=== PATIENT | female | born 1995 | race Caucasian/White ===

== ENCOUNTER → 2017-06-30 | Outpatient (CLI) | payer OTHER ==
[~2017-06-30] MED LIST: ALPR.5 PO; CYCL10 PO; Jolessa1 EACH PO; MEDR150I IM; MOOD STABILIZER PO; OMEPRAZOLE MAGN20 MG; PENVK500 PO; PROC5 PO; PROG100 PO; TIZA4 PO
== END | disposition home or self-care (01) ==
LOC: LAB 15:38
DX: N76.0 Acute vaginitis (principal)
CPT/HCPCS: 87070; 87205

== ENCOUNTER 2018-08-10 10:40 | Emergency (ER) | payer OTHER ==
[~2018-08-10] VITALS: Ht 154.9 cm; Wt 54.9 kg
[2018-08-10 11:48] LABS: BASOPHILS ABSOLUTE AUTO 0.04 K/mm3 (0.00-0.23); BASOPHILS PERCENT AUTO 0 % (0-2); EOSINOPHILS ABSOLUTE AUTO 0.11 K/mm3 (0.00-0.68); EOSINOPHILS PERCENT AUTO 1 % (0-6); Hematocrit 36.2 % (33.0-51.0); Hemoglobin 11.8 g/dL (11.5-16.0); IMMATURE GRAN ABSOLUTE AUTO 0.07 K/mm3 (0.00-0.10); IMMATURE GRAN PERCENT AUTO 1 % (0-1); LYMPHOCYTES ABSOLUTE AUTO 1.52 K/mm3 (0.84-5.20); LYMPHOCYTES PERCENT AUTO 13 % (21-46); MONOCYTES ABSOLUTE AUTO 0.57 K/mm3 (0.16-1.47); MONOCYTES PERCENT AUTO 5 % (4-13); Mean Corpuscular HGB 27.6 pg (26.0-34.0); Mean Corpuscular HGB Conc 32.6 g/dL (31.5-36.5); Mean Corpuscular Volume 85 fL (80-100); NEUTROPHILS ABSOLUTE AUTO 9.65 K/mm3 (1.96-9.15); NEUTROPHILS PERCENT AUTO 81 % (41-73); Platelet Count 278 K/mm3 (150-400); RDW Coefficient Variation 13.9 % (11.7-14.2); RDW Standard Deviation 43.1 fL (35.1-46.3); Red Blood Cell Count 4.27 M/mm3 (3.80-5.20); White Blood Cell Count 11.96 K/mm3 (4.00-11.30)
[2018-08-10 12:14] LABS: Alanine Aminotransfer (ALT/SGP 27 U/L (12-78); Albumin, Blood 3.2 g/dL (3.4-5.0); Albumin/Globulin Ratio 0.8 (0.8-1.8); Alk Phos 72 U/L (50-136); Anion Gap 8 mmol/L (6-16); Aspartate Aminotrans (AST/SGOT 23 U/L (12-37); Bilirubin, Total 0.2 mg/dL (0.1-1.0); Blood Urea Nitrogen 8 mg/dL (8-24); Bun/Creatinine Ratio 24.6 (12.0-20.0); CO2, Blood 24 mmol/L (21-32); Calcium, Blood 8.8 mg/dL (8.5-10.1); Chloride, Blood 104 mmol/L (98-108); Creatinine, Blood 0.33 mg/dL (0.40-1.00); Globulin, Blood 4.1 g/dL (2.2-4.0); Glomerular Filtration Rate >60 (60-); Glucose, Blood 81 mg/dL (70-99); Potassium, Blood 3.9 mmol/L (3.5-5.5); Sodium, Blood 136 mmol/L (136-145); Total Protein, Blood 7.3 g/dL (6.4-8.2)
== END 2018-08-10 18:33 | disposition home or self-care (01) ==
LOC: ER 10:40
PROVIDERS: Physician Assistant
DX: O99.89 Other specified diseases and conditions complicating pregnancy, childbirth and the puerperium (principal); R06.00 Dyspnea, unspecified; R00.2 Palpitations; Z87.891 Personal history of nicotine dependence; Z3A.21 21 weeks gestation of pregnancy
CPT/HCPCS: 36415; 71260; 80053; 83880; 84484; 85025; 85379; 93005; 93010; 93970; 99284-25; Q9967

== ENCOUNTER 2018-12-10 04:11 | Inpatient (IN) | payer OTHER ==
[~2018-12-10] VITALS: Ht 154.9 cm; Wt 67.3 kg
[2018-12-10] MEDS ORDERED: Prenatal Vitam1 EAC2 PO (04:48)
[2018-12-10 04:52] LABS: BASOPHILS ABSOLUTE AUTO 0.01 K/mm3 (0.00-0.23); BASOPHILS PERCENT AUTO 0 % (0-2); EOSINOPHILS ABSOLUTE AUTO 0.09 K/mm3 (0.00-0.68); EOSINOPHILS PERCENT AUTO 1 % (0-6); Hematocrit 38.4 % (33.0-51.0); Hemoglobin 12.9 g/dL (11.5-16.0); IMMATURE GRAN ABSOLUTE AUTO 0.03 K/mm3 (0.00-0.10); IMMATURE GRAN PERCENT AUTO 0 % (0-1); LYMPHOCYTES ABSOLUTE AUTO 2.32 K/mm3 (0.84-5.20); LYMPHOCYTES PERCENT AUTO 27 % (21-46); MONOCYTES ABSOLUTE AUTO 0.73 K/mm3 (0.16-1.47); MONOCYTES PERCENT AUTO 8 % (4-13); Mean Corpuscular HGB 28.2 pg (26.0-34.0); Mean Corpuscular HGB Conc 33.6 g/dL (31.5-36.5); Mean Corpuscular Volume 84 fL (80-100); Mean Platelet Volume 11.3 fL (9.1-12.4); NEUTROPHILS ABSOLUTE AUTO 5.57 K/mm3 (1.96-9.15); NEUTROPHILS PERCENT AUTO 64 % (41-73); Platelet Count 171 K/mm3 (150-400); RDW Coefficient Variation 13.2 % (11.7-14.2); Red Blood Cell Count 4.57 M/mm3 (3.80-5.20); White Blood Cell Count 8.75 K/mm3 (4.00-11.30)
--- NOTE | 2018-12-10 18:55 | NUR ---
NO COMPLAINTS. LOCHIA SCANT. LABIA REMAINS EDEMATOUS- NEW ICE PACK GIVEN. VOIDING AND AMBULATING WITHOUT DIFFICULTY.
[2018-12-11 05:30] LABS: BASOPHILS ABSOLUTE AUTO 0.03 K/mm3 (0.00-0.23); BASOPHILS PERCENT AUTO 0 % (0-2); EOSINOPHILS ABSOLUTE AUTO 0.11 K/mm3 (0.00-0.68); EOSINOPHILS PERCENT AUTO 1 % (0-6); Hematocrit 35.9 % (33.0-51.0); Hemoglobin 11.8 g/dL (11.5-16.0); IMMATURE GRAN ABSOLUTE AUTO 0.05 K/mm3 (0.00-0.10); IMMATURE GRAN PERCENT AUTO 0 % (0-1); LYMPHOCYTES PERCENT AUTO 19 % (21-46); MONOCYTES ABSOLUTE AUTO 0.68 K/mm3 (0.16-1.47); MONOCYTES PERCENT AUTO 5 % (4-13); Mean Corpuscular HGB 27.8 pg (26.0-34.0); Mean Corpuscular HGB Conc 32.9 g/dL (31.5-36.5); Mean Corpuscular Volume 85 fL (80-100); Mean Platelet Volume 10.4 fL (9.1-12.4); NEUTROPHILS PERCENT AUTO 74 % (41-73); Platelet Count 157 K/mm3 (150-400); RDW Coefficient Variation 13.5 % (11.7-14.2); RDW Standard Deviation 41.2 fL (35.1-46.3); Red Blood Cell Count 4.24 M/mm3 (3.80-5.20); White Blood Cell Count 13.47 K/mm3 (4.00-11.30)
[2018-12-11] MEDS ORDERED: IBUP800 PO (18:36)
== END 2018-12-11 19:00 | disposition home or self-care (01) | DRG 807 ==
LOC: BC 04:11
PROVIDERS: ADMIT Nurse Practitioner Obstetrics & Gynecology
PROC: 10E0XZZ Delivery of Products of Conception, External Approach (ICD-10-PCS; principal; 2018-12-10)
PROC: 3E0R3BZ Introduction of Anesthetic Agent into Spinal Canal, Percutaneous Approach (ICD-10-PCS; 2018-12-10)
DX: O24.420 Gestational diabetes mellitus in childbirth, diet controlled (principal); Z37.0 Single live birth; O13.4 Gestational [pregnancy-induced] hypertension without significant proteinuria, complicating childbirth; Z3A.38 38 weeks gestation of pregnancy; O75.89 Other specified complications of labor and delivery; M32.9 Systemic lupus erythematosus, unspecified; O99.824 Streptococcus B carrier state complicating childbirth
CPT/HCPCS: 36415; 51702; 82947; 85025; 86900; 86901; J0290; J1885; J2405; J2590; J3010; J7060; J7120

== ENCOUNTER → 2019-06-30 | Outpatient (CLI) | payer OTHER ==
[~2019-06-30] MED LIST changes: +IBUP800 PO; +Prenatal Vitam1 EAC2 PO
[2019-06-30 16:25] LABS: BASOPHILS ABSOLUTE AUTO 0.03 K/mm3 (0.00-0.23); BASOPHILS PERCENT AUTO 0 % (0-2); EOSINOPHILS ABSOLUTE AUTO 0.02 K/mm3 (0.00-0.68); EOSINOPHILS PERCENT AUTO 0 % (0-6); Hemoglobin 13.1 g/dL (11.5-16.0); IMMATURE GRAN ABSOLUTE AUTO 0.02 K/mm3 (0.00-0.10); IMMATURE GRAN PERCENT AUTO 0 % (0-1); LYMPHOCYTES ABSOLUTE AUTO 1.11 K/mm3 (0.84-5.20); LYMPHOCYTES PERCENT AUTO 13 % (21-46); MONOCYTES ABSOLUTE AUTO 0.57 K/mm3 (0.16-1.47); MONOCYTES PERCENT AUTO 7 % (4-13); Mean Corpuscular HGB 26.6 pg (26.0-34.0); Mean Corpuscular HGB Conc 32.8 g/dL (31.5-36.5); Mean Corpuscular Volume 81 fL (80-100); Mean Platelet Volume 9.3 fL (9.1-12.4); NEUTROPHILS ABSOLUTE AUTO 6.61 K/mm3 (1.96-9.15); NEUTROPHILS PERCENT AUTO 79 % (41-73); Platelet Count 255 K/mm3 (150-400); RDW Standard Deviation 37.9 fL (35.1-46.3); Red Blood Cell Count 4.93 M/mm3 (3.80-5.20); White Blood Cell Count 8.36 K/mm3 (4.00-11.30)
[2019-06-30 16:34] LABS: Alanine Aminotransfer (ALT/SGP 21 U/L (12-78); Albumin, Blood 3.8 g/dL (3.4-5.0); Alk Phos 121 U/L (40-126); Anion Gap 8 mmol/L (6-16); Aspartate Aminotrans (AST/SGOT 19 U/L (12-37); Bilirubin, Total 0.5 mg/dL (0.1-1.0); Blood Urea Nitrogen 13 mg/dL (8-24); CO2, Blood 26 mmol/L (21-32); Chloride, Blood 104 mmol/L (98-108); Creatinine, Blood 0.65 mg/dL (0.40-1.00); Globulin, Blood 3.9 g/dL (2.2-4.0); Glomerular Filtration Rate >60 (60-); Glucose, Blood 98 mg/dL (70-99); Potassium, Blood 3.6 mmol/L (3.5-5.5); Sodium, Blood 138 mmol/L (136-145); Total Protein, Blood 7.7 g/dL (6.4-8.2)
== END | disposition home or self-care (01) ==
LOC: LAB SHORT 16:20 → LAB EV 16:20
PROVIDERS: Physician Assistant
DX: R73.9 Hyperglycemia, unspecified (principal)
CPT/HCPCS: 80053; 83036; 85025

== ENCOUNTER → 2021-02-21 | Outpatient (CLI) | payer OTHER | END | disposition home or self-care (01) | LOC: LAB SHORT 10:00 | DX: Z09 Encounter for follow-up examination after completed treatment for conditions other than malignant neoplasm (principal); Z86.14 Personal history of Methicillin resistant Staphylococcus aureus infection | CPT/HCPCS: 87081 ==

== ENCOUNTER → 2021-03-27 | Outpatient (CLI) | payer OTHER | END | disposition home or self-care (01) | LOC: LAB SHORT 11:00 → LAB 11:00 | DX: Z09 Encounter for follow-up examination after completed treatment for conditions other than malignant neoplasm (principal); Z86.14 Personal history of Methicillin resistant Staphylococcus aureus infection | CPT/HCPCS: 87081 ==

== ENCOUNTER 2021-05-06 16:46 | Observation (INO) | payer OTHER ==
[~2021-05-06] VITALS: Ht 154.9 cm; Wt 59.1 kg
[2021-05-06 20:29] LABS: Source, Urine Clean Catch
[2021-05-06 20:32] LABS: Bilirubin, Urine Neg (Neg); Blood, Urine Neg (Neg); Glucose Qualitative, Urine Neg (Neg); Ketones, Urine Neg (Neg); Leukocyte Esterase, Urine Neg (Neg); Nitrite, Urine Neg (Neg); Protein, Urine Neg (Neg); Urobilinogen, Urine NORM (Normal)
[2021-05-06 20:32] LABS: BASOPHILS ABSOLUTE AUTO 0.03 K/mm3 (0.00-0.23); BASOPHILS PERCENT AUTO 0 % (0-2); EOSINOPHILS PERCENT AUTO 2 % (0-6); Hematocrit 35.2 % (33.0-51.0); Hemoglobin 11.7 g/dL (11.5-16.0); IMMATURE GRAN ABSOLUTE AUTO 0.07 K/mm3 (0.00-0.10); IMMATURE GRAN PERCENT AUTO 1 % (0-1); LYMPHOCYTES ABSOLUTE AUTO 2.41 K/mm3 (0.84-5.20); LYMPHOCYTES PERCENT AUTO 19 % (21-46); MONOCYTES ABSOLUTE AUTO 0.81 K/mm3 (0.16-1.47); MONOCYTES PERCENT AUTO 7 % (4-13); Mean Corpuscular HGB 26.5 pg (26.0-34.0); Mean Corpuscular HGB Conc 33.2 g/dL (31.5-36.5); Mean Corpuscular Volume 80 fL (80-100); Mean Platelet Volume 9.8 fL (9.1-12.4); NEUTROPHILS ABSOLUTE AUTO 8.92 K/mm3 (1.96-9.15); NEUTROPHILS PERCENT AUTO 72 % (41-73); Platelet Count 280 K/mm3 (150-400); RDW Coefficient Variation 12.7 % (11.7-14.2); RDW Standard Deviation 36.3 fL (35.1-46.3); Red Blood Cell Count 4.42 M/mm3 (3.80-5.20); White Blood Cell Count 12.44 K/mm3 (4.00-11.30)
[2021-05-06 20:35] LABS: Appearance, Urine Clear (Clear); Color, Urine Pale Yellow (P-Yellow)
[2021-05-06 21:09] LABS: Influenza A, PCR NEGATIVE (NEGATIVE); Influenza B, PCR NEGATIVE (NEGATIVE); Resp Syncytial Virus, PCR NEGATIVE (NEGATIVE); SARS-Cov-2 (COVID-19) PCR, MMC NEGATIVE (NEGATIVE)
== END 2021-05-07 09:46 | disposition home or self-care (01) ==
LOC: OBS 16:46 → BC 16:46 → OBS 20:33 → BC 20:36
PROVIDERS: ADMIT Nurse Practitioner Obstetrics & Gynecology
DX: O60.03 Preterm labor without delivery, third trimester (principal); Z20.822 Contact with and (suspected) exposure to COVID-19; Z3A.00 Weeks of gestation of pregnancy not specified; Z88.5 Allergy status to narcotic agent
CPT/HCPCS: 0241U; 59025; 81003; 82731; 85025; 96374; A9270; G0378; J3010

== ENCOUNTER → 2021-06-14 | Outpatient (CLI) | payer OTHER | END | disposition home or self-care (01) | LOC: LAB SHORT 12:00 | PROVIDERS: Advanced Practice Midwife | DX: O60.03 Preterm labor without delivery, third trimester (principal) | CPT/HCPCS: 82731 ==

== ENCOUNTER 2021-07-16 20:02 | Inpatient (IN) | payer OTHER ==
[~2021-07-16] VITALS: Ht 154.9 cm; Wt 68.2 kg
[2021-07-16 21:09] LABS: BASOPHILS ABSOLUTE AUTO 0.02 K/mm3 (0.00-0.23); BASOPHILS PERCENT AUTO 0 % (0-2); EOSINOPHILS ABSOLUTE AUTO 0.13 K/mm3 (0.00-0.68); EOSINOPHILS PERCENT AUTO 1 % (0-6); Hematocrit 31.9 % (33.0-51.0); IMMATURE GRAN ABSOLUTE AUTO 0.05 K/mm3 (0.00-0.10); IMMATURE GRAN PERCENT AUTO 1 % (0-1); LYMPHOCYTES ABSOLUTE AUTO 2.09 K/mm3 (0.84-5.20); LYMPHOCYTES PERCENT AUTO 23 % (21-46); MONOCYTES ABSOLUTE AUTO 0.64 K/mm3 (0.16-1.47); MONOCYTES PERCENT AUTO 7 % (4-13); Mean Corpuscular HGB 23.8 pg (26.0-34.0); Mean Corpuscular HGB Conc 31.3 g/dL (31.5-36.5); Mean Corpuscular Volume 76 fL (80-100); Mean Platelet Volume 10.5 fL (9.1-12.4); NEUTROPHILS ABSOLUTE AUTO 6.24 K/mm3 (1.96-9.15); NEUTROPHILS PERCENT AUTO 68 % (41-73); Platelet Count 239 K/mm3 (150-400); RDW Standard Deviation 40.7 fL (35.1-46.3); White Blood Cell Count 9.17 K/mm3 (4.00-11.30)
[2021-07-16 22:38] LABS: Influenza A, PCR NEGATIVE (NEGATIVE); Influenza B, PCR NEGATIVE (NEGATIVE); Resp Syncytial Virus, PCR NEGATIVE (NEGATIVE); SARS-Cov-2 (COVID-19) PCR, MMC NEGATIVE (NEGATIVE)
[2021-07-18 07:57] LABS: Hematocrit 30.3 % (33.0-51.0); Hemoglobin 9.4 g/dL (11.5-16.0); Mean Corpuscular HGB 23.7 pg (26.0-34.0); Mean Corpuscular Volume 77 fL (80-100); Mean Platelet Volume 10.3 fL (9.1-12.4); Platelet Count 215 K/mm3 (150-400); RDW Coefficient Variation 15.1 % (11.7-14.2); RDW Standard Deviation 41.1 fL (35.1-46.3); Red Blood Cell Count 3.96 M/mm3 (3.80-5.20); White Blood Cell Count 10.11 K/mm3 (4.00-11.30)
[2021-07-18] MEDS ORDERED: IBUP800 PO (11:04)
--- NOTE | 2021-07-18 12:25 | NUR ---
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 Denies questions/concerns. Verbalizes understanding of instrucitons and follow up care. IV d/c'd. ID bands matched w/nb and verification form. No acute changes t/o shift. Pt d/c'd home ambulatory to care of .
== END 2021-07-18 12:25 | disposition home or self-care (01) | DRG 807 ==
LOC: BC 20:02 → OBS 20:02 → BC 20:18
PROVIDERS: ADMIT Nurse Practitioner Obstetrics & Gynecology
PROC: 10E0XZZ Delivery of Products of Conception, External Approach (ICD-10-PCS; principal; 2021-07-17)
PROC: 10907ZC Drainage of Amniotic Fluid, Therapeutic from Products of Conception, Via Natural or Artificial Opening (ICD-10-PCS; 2021-07-17)
PROC: 00HU33Z Insertion of Infusion Device into Spinal Canal, Percutaneous Approach (ICD-10-PCS; 2021-07-17)
PROC: 3E0R3BZ Introduction of Anesthetic Agent into Spinal Canal, Percutaneous Approach (ICD-10-PCS; 2021-07-17)
PROC: 3E0P7VZ Introduction of Hormone into Female Reproductive, Via Natural or Artificial Opening (ICD-10-PCS; 2021-07-17)
DX: O77.0 Labor and delivery complicated by meconium in amniotic fluid (principal); Z37.0 Single live birth; Z67.20 Type B blood, Rh positive; Z20.822 Contact with and (suspected) exposure to COVID-19
CPT/HCPCS: 0241U; 36415; 51702; 85025; 85027; 86850; 86900; 86901; A9270; J1885; J2001; J2210; J2405; J2590; J3010; J7120

== ENCOUNTER → 2022-03-08 | Outpatient (CLI) | payer OTHER ==
[2022-03-08 14:16] LABS: BASOPHILS ABSOLUTE AUTO 0.02 K/mm3 (0.00-0.23); BASOPHILS PERCENT AUTO 0 % (0-2); EOSINOPHILS ABSOLUTE AUTO 0.11 K/mm3 (0.00-0.68); EOSINOPHILS PERCENT AUTO 2 % (0-6); Hematocrit 39.8 % (33.0-51.0); Hemoglobin 13.4 g/dL (11.5-16.0); IMMATURE GRAN ABSOLUTE AUTO 0.02 K/mm3 (0.00-0.10); IMMATURE GRAN PERCENT AUTO 0 % (0-1); LYMPHOCYTES ABSOLUTE AUTO 1.72 K/mm3 (0.84-5.20); LYMPHOCYTES PERCENT AUTO 31 % (21-46); MONOCYTES ABSOLUTE AUTO 0.35 K/mm3 (0.16-1.47); MONOCYTES PERCENT AUTO 6 % (4-13); Mean Corpuscular HGB 27.1 pg (26.0-34.0); Mean Corpuscular HGB Conc 33.7 g/dL (31.5-36.5); Mean Corpuscular Volume 80 fL (80-100); Mean Platelet Volume 9.5 fL (9.1-12.4); NEUTROPHILS ABSOLUTE AUTO 3.31 K/mm3 (1.96-9.15); NEUTROPHILS PERCENT AUTO 60 % (41-73); Platelet Count 329 K/mm3 (150-400); RDW Coefficient Variation 13.2 % (11.7-14.2); RDW Standard Deviation 37.9 fL (35.1-46.3); Red Blood Cell Count 4.95 M/mm3 (3.80-5.20); White Blood Cell Count 5.53 K/mm3 (4.00-11.30)
[2022-03-08 14:40] LABS: Albumin, Blood 4.3 g/dL (3.4-5.0); Albumin/Globulin Ratio 1.2 (0.8-1.8); Bilirubin, Total 0.3 mg/dL (0.1-1.0); Bun/Creatinine Ratio 32.1 (12.0-20.0); Calcium, Blood 9.3 mg/dL (8.5-10.1); Creatinine, Blood 0.53 mg/dL (0.40-1.00); Globulin, Blood 3.7 g/dL (2.2-4.0); Phosphorus, Blood 3.9 mg/dL (2.5-4.9); Potassium, Blood 3.7 mmol/L (3.5-5.5); Thyroid Stimulating Hormone 1.543 uIU/mL (0.360-4.800)
[2022-03-13 21:11] LABS: ANTI-CENTROMERE B ANTIBODIES 0.2 AI (0.0-0.9); ANTI-DNA (DS) AB QN 4 IU/mL (0-9); ANTI-JO-1 <0.2 AI (0.0-0.9); ANTICHROMATIN ANTIBODIES <0.2 AI (0.0-0.9); ANTISCLERODERMA-70 ANTIBODIES <0.2 AI (0.0-0.9); RNP ANTIBODIES <0.2 AI (0.0-0.9); SJOGREN'S ANTI-SS-A <0.2 AI (0.0-0.9); SJOGREN'S ANTI-SS-B <0.2 AI (0.0-0.9); SMITH ANTIBODIES <0.2 AI (0.0-0.9)
== END | disposition home or self-care (01) ==
LOC: LAB 14:08 → LAB SHORT 14:08
PROVIDERS: Family Medicine
DX: R63.4 Abnormal weight loss (principal)
CPT/HCPCS: 80053; 82306; 84100; 84443; 85025; 86038; 86225; 86235

== ENCOUNTER → 2022-03-29 | Outpatient (CLI) | payer OTHER ==
[2022-03-29 16:44] LABS: BASOPHILS ABSOLUTE AUTO 0.03 K/mm3 (0.00-0.23); BASOPHILS PERCENT AUTO 0 % (0-2); EOSINOPHILS ABSOLUTE AUTO 0.16 K/mm3 (0.00-0.68); EOSINOPHILS PERCENT AUTO 2 % (0-6); Hemoglobin 13.3 g/dL (11.5-16.0); IMMATURE GRAN ABSOLUTE AUTO 0.01 K/mm3 (0.00-0.10); IMMATURE GRAN PERCENT AUTO 0 % (0-1); LYMPHOCYTES ABSOLUTE AUTO 1.74 K/mm3 (0.84-5.20); LYMPHOCYTES PERCENT AUTO 26 % (21-46); MONOCYTES ABSOLUTE AUTO 0.34 K/mm3 (0.16-1.47); MONOCYTES PERCENT AUTO 5 % (4-13); Mean Corpuscular HGB 26.5 pg (26.0-34.0); Mean Corpuscular HGB Conc 32.4 g/dL (31.5-36.5); Mean Corpuscular Volume 82 fL (80-100); Mean Platelet Volume 9.4 fL (9.1-12.4); NEUTROPHILS ABSOLUTE AUTO 4.43 K/mm3 (1.96-9.15); NEUTROPHILS PERCENT AUTO 66 % (41-73); Platelet Count 280 K/mm3 (150-400); RDW Coefficient Variation 13.2 % (11.7-14.2); RDW Standard Deviation 39.1 fL (35.1-46.3); Red Blood Cell Count 5.01 M/mm3 (3.80-5.20); White Blood Cell Count 6.71 K/mm3 (4.00-11.30)
[2022-03-29 17:21] LABS: Bun/Creatinine Ratio 23.3 (12.0-20.0); Creatinine, Blood 0.73 mg/dL (0.40-1.00); Free Thyroxine 0.85 ng/dL (0.70-1.60); Potassium, Blood 3.4 mmol/L (3.5-5.5); Thyroid Stimulating Hormone 1.938 uIU/mL (0.360-4.800)
[2022-03-29 18:46] LABS: Triiodothyronine, Free 2.5 pg/mL (2.18-3.98)
== END ==
LOC: LAB 16:40 → LAB SHORT 16:40
PROVIDERS: Physician Assistant Surgical
DX: R53.83 Other fatigue (principal)
CPT/HCPCS: 80048; 82607; 82746; 84439; 84443; 84481; 85025

== ENCOUNTER 2022-07-14 21:43 | Emergency (ER) | payer OTHER ==
[~2022-07-14] VITALS: Ht 154.9 cm; Wt 43.5 kg
[~2022-07-14 21:43] MED LIST changes: +CYMBALTA30 M2 PO; +ONDA4ODT MM
== END 2022-07-14 23:11 | disposition home or self-care (01) ==
LOC: ER 21:43
DX: S05.02XA Injury of conjunctiva and corneal abrasion without foreign body, left eye, initial encounter (principal); W50.0XXA Accidental hit or strike by another person, initial encounter; Z88.5 Allergy status to narcotic agent; Z79.899 Other long term (current) drug therapy; Z87.891 Personal history of nicotine dependence
CPT/HCPCS: A9270

== ENCOUNTER → 2022-08-23 | Outpatient (CLI) | payer OTHER ==
[2022-08-23 14:20] LABS: BASOPHILS ABSOLUTE AUTO 0.03 K/mm3 (0.00-0.23); BASOPHILS PERCENT AUTO 0 % (0-2); EOSINOPHILS ABSOLUTE AUTO 0.17 K/mm3 (0.00-0.68); EOSINOPHILS PERCENT AUTO 2 % (0-6); Hematocrit 39.7 % (33.0-51.0); Hemoglobin 12.9 g/dL (11.5-16.0); IMMATURE GRAN ABSOLUTE AUTO 0.02 K/mm3 (0.00-0.10); IMMATURE GRAN PERCENT AUTO 0 % (0-1); LYMPHOCYTES PERCENT AUTO 28 % (21-46); MONOCYTES ABSOLUTE AUTO 0.41 K/mm3 (0.16-1.47); MONOCYTES PERCENT AUTO 5 % (4-13); Mean Corpuscular HGB 26.7 pg (26.0-34.0); Mean Corpuscular HGB Conc 32.5 g/dL (31.5-36.5); Mean Corpuscular Volume 82 fL (80-100); Mean Platelet Volume 9.4 fL (9.1-12.4); NEUTROPHILS ABSOLUTE AUTO 5.51 K/mm3 (1.96-9.15); NEUTROPHILS PERCENT AUTO 65 % (41-73); Platelet Count 276 K/mm3 (150-400); RDW Coefficient Variation 13.7 % (11.7-14.2); RDW Standard Deviation 40.7 fL (35.1-46.3); Red Blood Cell Count 4.83 M/mm3 (3.80-5.20); White Blood Cell Count 8.54 K/mm3 (4.00-11.30)
== END | disposition home or self-care (01) ==
LOC: LAB SHORT 13:58
PROVIDERS: Family Medicine
DX: I95.1 Orthostatic hypotension (principal); M25.50 Pain in unspecified joint; R62.7 Adult failure to thrive; R76.8 Other specified abnormal immunological findings in serum
CPT/HCPCS: 82306; 82607; 82746; 85651

== ENCOUNTER → 2022-09-03 | Outpatient (CLI) | payer OTHER | END | disposition home or self-care (01) | LOC: LAB SHORT 08:50 → PLD 08:50 | DX: D23.5 Other benign neoplasm of skin of trunk (principal) | CPT/HCPCS: 88305 ==

== ENCOUNTER 2022-12-22 22:07 | Emergency (ER) | payer OTHER ==
[~2022-12-22] VITALS: Ht 154.9 cm; Wt 41.7 kg
[2022-12-22 22:17] VITALS: BP 134/50
== END 2022-12-23 00:32 | disposition home or self-care (01) ==
LOC: ER 22:07
DX: S91.322A Laceration with foreign body, left foot, initial encounter (principal); W25.XXXA Contact with sharp glass, initial encounter; Z88.5 Allergy status to narcotic agent; Z87.891 Personal history of nicotine dependence
CPT/HCPCS: 12001; 73620; 99283-25

== ENCOUNTER → 2023-03-19 | Outpatient (CLI) | payer OTHER ==
[2023-03-20 11:33] LABS: Candida species (DNA Probe) Negative (NEGATIVE); G. vaginalis (DNA Probe) Positive (NEGATIVE); T. vaginalis (DNA Probe) Negative (NEGATIVE)
== END | disposition home or self-care (01) ==
LOC: LAB SHORT 14:57 → LAB 14:57
PROVIDERS: Advanced Practice Midwife
DX: Z01.419 Encounter for gynecological examination (general) (routine) without abnormal findings (principal); N76.0 Acute vaginitis
CPT/HCPCS: 87480; 87510; 87660; G0145

== ENCOUNTER 2023-03-25 12:28 | Emergency (ER) | payer OTHER ==
[~2023-03-25] VITALS: Ht 154.9 cm; Wt 44.0 kg
[2023-03-25 12:35] VITALS: BP 123/80
== END 2023-03-25 16:50 | disposition home or self-care (01) ==
LOC: ER 12:28
DX: M54.9 Dorsalgia, unspecified (principal); M54.2 Cervicalgia; R07.9 Chest pain, unspecified; V89.2XXA Person injured in unspecified motor-vehicle accident, traffic, initial encounter; Z88.5 Allergy status to narcotic agent; Z87.891 Personal history of nicotine dependence
CPT/HCPCS: 71046; 72070; 72100; 72125; 93005; 93010; 96372; 99284-25; A9270; J1885

== ENCOUNTER → 2023-04-13 | Outpatient (CLI) | payer OTHER ==
[2023-04-13 10:35] LABS: BASOPHILS ABSOLUTE AUTO 0.02 K/mm3 (0.00-0.23); BASOPHILS PERCENT AUTO 0 % (0-2); EOSINOPHILS ABSOLUTE AUTO 0.12 K/mm3 (0.00-0.68); EOSINOPHILS PERCENT AUTO 3 % (0-6); Hematocrit 40.9 % (33.0-51.0); Hemoglobin 13.5 g/dL (11.5-16.0); IMMATURE GRAN ABSOLUTE AUTO 0.01 K/mm3 (0.00-0.10); IMMATURE GRAN PERCENT AUTO 0 % (0-1); LYMPHOCYTES ABSOLUTE AUTO 1.79 K/mm3 (0.84-5.20); LYMPHOCYTES PERCENT AUTO 37 % (21-46); MONOCYTES ABSOLUTE AUTO 0.32 K/mm3 (0.16-1.47); MONOCYTES PERCENT AUTO 7 % (4-13); Mean Corpuscular HGB 26.7 pg (26.0-34.0); Mean Corpuscular Volume 81 fL (80-100); Mean Platelet Volume 9.4 fL (9.1-12.4); NEUTROPHILS ABSOLUTE AUTO 2.63 K/mm3 (1.96-9.15); NEUTROPHILS PERCENT AUTO 54 % (41-73); Platelet Count 313 K/mm3 (150-400); RDW Coefficient Variation 13.9 % (11.7-14.2); RDW Standard Deviation 40.7 fL (35.1-46.3); Red Blood Cell Count 5.06 M/mm3 (3.80-5.20); White Blood Cell Count 4.89 K/mm3 (4.00-11.30)
[2023-04-13 10:45] LABS: Albumin, Blood 4.3 g/dL (3.4-5.0); Bilirubin, Total 0.8 mg/dL (0.1-1.0); Calcium, Blood 9.3 mg/dL (8.5-10.1); Creatinine, Blood 0.79 mg/dL (0.40-1.00); Globulin, Blood 4.2 g/dL (2.2-4.0); Potassium, Blood 3.6 mmol/L (3.5-5.5); Total Protein, Blood 8.5 g/dL (6.4-8.2)
== END | disposition home or self-care (01) ==
LOC: LAB 10:29 → LAB SHORT 10:29
PROVIDERS: Physician Assistant Medical
DX: R11.2 Nausea with vomiting, unspecified (principal)
CPT/HCPCS: 80053; 85025

== ENCOUNTER → 2023-04-21 | Outpatient (CLI) | payer OTHER | LOC: LAB 07:40 → LAB SHORT 07:40 | DX: D23.61 Other benign neoplasm of skin of right upper limb, including shoulder (principal) | CPT/HCPCS: 88305 ==

== ENCOUNTER 2023-11-14 12:04 | Emergency (ER) | payer OTHER ==
[~2023-11-14] VITALS: Ht 154.9 cm; Wt 45.4 kg
[2023-11-14] VITALS (8 sets, daily range): BP systolic 97–109; BP diastolic 57–81
[2023-11-14] MEDS ORDERED: Citric Acid/Sodium Citrate 30 ML BTL PO ONE (16:00)
[2023-11-14] MEDS ORDERED: Lactated Ringer's 1,000 ML IV SCH (16:00)
[2023-11-14] MEDS ORDERED: FentaNYL Citrate 50 MCG/ML 2 ML Injection ONE (16:04)
[2023-11-14] MEDS ORDERED: Midazolam HCl 1MG / ML 2ML Vial ONE (16:04)
[2023-11-14] MEDS ORDERED: Dexamethasone Sod Phos 10 MG/ML 1ML VIAL ONE (16:04)
[2023-11-14] MEDS ORDERED: Ondansetron HCl 2 MG / ML 2ML Vial ONE (16:04)
[2023-11-14] MEDS ORDERED: propofoL 20 ML IV ONE (16:04)
[2023-11-14] MEDS ORDERED: Metoclopramide HCl 5MG / ML 2ML Vial ONE (16:05)
[2023-11-14] MEDS ORDERED: Acetaminophen 500 MG Tab PO PRN (17:15)
[2023-11-14] MEDS ORDERED: OxyCODONE HCL 5 MG TAB PO PRN (17:15)
--- NOTE | 2023-11-14 18:01 | NUR ---
DISCHARGE NOTE Patient up to Ambulate independently. Gait steady. Discharge instructions reviewed with patient. Patient verbalizes understanding. Copy given to patient to take home. Lungs clear T/O to Auscultation. No vaginal bleeding noted, no complaints of pain or nausea. Della pad in place. Vital signs WNL. Discharged via wheelchair to private car for ride home.
--- NOTE | 2023-11-17 16:34 | NUR ---
11/17/23 1634 Yumiko Mehta VERIFICATIONS: EDIT CHART.
== END 2023-11-14 16:10 | disposition other institution (70) ==
LOC: ER 12:04
DX: N99.820 Postprocedural hemorrhage of a genitourinary system organ or structure following a genitourinary system procedure (principal); Z87.891 Personal history of nicotine dependence; Z79.899 Other long term (current) drug therapy; D64.9 Anemia, unspecified
CPT/HCPCS: 74177; 99284-25; A9270; J1100; J2250; J2405; J2704; J2765; J3010; J7120; Q9967

== ENCOUNTER → 2023-11-14 | Outpatient (CLI) | payer OTHER ==
[~2023-11-14] MED LIST changes: +ACET325 PO; +CEPH500 PO; +IBUP400 PO; +OXYC5 PO
[2023-11-14 11:25] LABS: BASOPHILS ABSOLUTE AUTO 0.02 K/mm3 (0.00-0.23); BASOPHILS PERCENT AUTO 0 % (0-2); EOSINOPHILS ABSOLUTE AUTO 0.19 K/mm3 (0.00-0.68); EOSINOPHILS PERCENT AUTO 3 % (0-6); Hematocrit 38.2 % (33.0-51.0); Hemoglobin 12.3 g/dL (11.5-16.0); IMMATURE GRAN ABSOLUTE AUTO 0.02 K/mm3 (0.00-0.10); IMMATURE GRAN PERCENT AUTO 0 % (0-1); LYMPHOCYTES ABSOLUTE AUTO 1.47 K/mm3 (0.84-5.20); LYMPHOCYTES PERCENT AUTO 24 % (21-46); MONOCYTES ABSOLUTE AUTO 0.34 K/mm3 (0.16-1.47); MONOCYTES PERCENT AUTO 6 % (4-13); Mean Corpuscular HGB 25.8 pg (26.0-34.0); Mean Corpuscular HGB Conc 32.2 g/dL (31.5-36.5); Mean Corpuscular Volume 80 fL (80-100); Mean Platelet Volume 9.3 fL (9.1-12.4); NEUTROPHILS ABSOLUTE AUTO 4.13 K/mm3 (1.96-9.15); NEUTROPHILS PERCENT AUTO 67 % (41-73); Platelet Count 317 K/mm3 (150-400); RDW Coefficient Variation 14.4 % (11.7-14.2); RDW Standard Deviation 41.8 fL (35.1-46.3); Red Blood Cell Count 4.77 M/mm3 (3.80-5.20); White Blood Cell Count 6.17 K/mm3 (4.00-11.30)
[2023-11-14 11:34] LABS: Bun/Creatinine Ratio 21.5 (12.0-20.0); Calcium, Blood 9.2 mg/dL (8.5-10.1); Creatinine, Blood 0.65 mg/dL (0.40-1.00); Potassium, Blood 3.9 mmol/L (3.5-5.5)
== END | disposition home or self-care (01) ==
LOC: LAB 11:20 → LAB SHORT 11:20
PROVIDERS: Physician Assistant Surgical
DX: R10.2 Pelvic and perineal pain (principal)
CPT/HCPCS: 80048; 85025

== ENCOUNTER 2023-11-17 14:44 | Inpatient (IN) | payer OTHER ==
[~2023-11-17] VITALS: Ht 154.9 cm; Wt 47.0 kg
[2023-11-17 15:38] LABS: BASOPHILS ABSOLUTE AUTO 0.03 K/mm3 (0.00-0.23); BASOPHILS PERCENT AUTO 0 % (0-2); EOSINOPHILS ABSOLUTE AUTO 0.23 K/mm3 (0.00-0.68); EOSINOPHILS PERCENT AUTO 3 % (0-6); Hematocrit 36.5 % (33.0-51.0); Hemoglobin 11.8 g/dL (11.5-16.0); IMMATURE GRAN ABSOLUTE AUTO 0.02 K/mm3 (0.00-0.10); IMMATURE GRAN PERCENT AUTO 0 % (0-1); LYMPHOCYTES ABSOLUTE AUTO 1.69 K/mm3 (0.84-5.20); LYMPHOCYTES PERCENT AUTO 22 % (21-46); MONOCYTES ABSOLUTE AUTO 0.39 K/mm3 (0.16-1.47); MONOCYTES PERCENT AUTO 5 % (4-13); Mean Corpuscular HGB 25.9 pg (26.0-34.0); Mean Corpuscular HGB Conc 32.3 g/dL (31.5-36.5); Mean Corpuscular Volume 80 fL (80-100); Mean Platelet Volume 9.3 fL (9.1-12.4); NEUTROPHILS ABSOLUTE AUTO 5.17 K/mm3 (1.96-9.15); NEUTROPHILS PERCENT AUTO 69 % (41-73); Platelet Count 289 K/mm3 (150-400); RDW Coefficient Variation 14.1 % (11.7-14.2); RDW Standard Deviation 41.1 fL (35.1-46.3); Red Blood Cell Count 4.55 M/mm3 (3.80-5.20); White Blood Cell Count 7.53 K/mm3 (4.00-11.30)
[2023-11-17 15:49] LABS: Albumin/Globulin Ratio 1.1 (0.8-1.8); Bilirubin, Total 0.4 mg/dL (0.1-1.0); Bun/Creatinine Ratio 20.4 (12.0-20.0); Creatinine, Blood 0.64 mg/dL (0.40-1.00); Globulin, Blood 3.7 g/dL (2.2-4.0); Total Protein, Blood 7.7 g/dL (6.4-8.2)
[2023-11-17] MEDS ORDERED: Lactated Ringer's 1,000 ML IV SCH (16:55)
[2023-11-17] MEDS ORDERED: Metoclopramide HCl 5MG / ML 2ML Vial IV PRN (16:55)
[2023-11-17] MEDS ORDERED: DiphenhydrAMINE HCL 25 MG Cap PO PRN (16:55)
[2023-11-17] MEDS ORDERED: Morphine Sulfate 4 MG/1 ML Injection IV PRN (16:55)
[2023-11-17] MEDS ORDERED: Naloxone HCl 0.4MG / ML 1ML Vial IV PRN (16:55)
[2023-11-17] MEDS ORDERED: Zolpidem Tartrate 5 MG Tab PO PRN (17:00)
[2023-11-17] MEDS ORDERED: Ondansetron HCl 2 MG / ML 2ML Vial IV PRN (17:00)
[2023-11-17 18:45] VITALS: BP 125/95
[2023-11-17 18:46] VITALS: BP 117/82
[2023-11-17 18:47] VITALS: BP 117/82
--- NOTE | 2023-11-17 18:49 | NUR ---
ARRIVED FROM THE ED VIA W/C, A&OX4, DENIES ANY PAIN OR ANY DISCOMFORT AT THIS TIME, ORIENTED TO ROOM AND CALL SYSTEM, REPORT TO NOC RN.
[2023-11-17] MEDS ORDERED: Famotidine 10 MG/ML 2ML Vial IV SCH (21:00)
[2023-11-17] MEDS ORDERED: OXYC5 PO (22:50)
[2023-11-18] VITALS (10 sets, daily range): BP systolic 98–152; BP diastolic 60–85
[2023-11-18 04:08] LABS: BASOPHILS ABSOLUTE AUTO 0.03 K/mm3 (0.00-0.23); BASOPHILS PERCENT AUTO 1 % (0-2); EOSINOPHILS ABSOLUTE AUTO 0.27 K/mm3 (0.00-0.68); EOSINOPHILS PERCENT AUTO 6 % (0-6); Hematocrit 32.6 % (33.0-51.0); Hemoglobin 10.4 g/dL (11.5-16.0); IMMATURE GRAN ABSOLUTE AUTO 0.01 K/mm3 (0.00-0.10); IMMATURE GRAN PERCENT AUTO 0 % (0-1); LYMPHOCYTES ABSOLUTE AUTO 2.13 K/mm3 (0.84-5.20); LYMPHOCYTES PERCENT AUTO 44 % (21-46); MONOCYTES ABSOLUTE AUTO 0.29 K/mm3 (0.16-1.47); MONOCYTES PERCENT AUTO 6 % (4-13); Mean Corpuscular HGB 25.4 pg (26.0-34.0); Mean Corpuscular HGB Conc 31.9 g/dL (31.5-36.5); Mean Corpuscular Volume 80 fL (80-100); Mean Platelet Volume 9.6 fL (9.1-12.4); NEUTROPHILS ABSOLUTE AUTO 2.14 K/mm3 (1.96-9.15); NEUTROPHILS PERCENT AUTO 44 % (41-73); Platelet Count 259 K/mm3 (150-400); RDW Coefficient Variation 14.2 % (11.7-14.2); Red Blood Cell Count 4.09 M/mm3 (3.80-5.20); White Blood Cell Count 4.87 K/mm3 (4.00-11.30)
[2023-11-18 04:22] LABS: International Normalized Ratio 0.98; Prothrombin Time Results 10.5 Sec (9.7-11.5)
[2023-11-18 04:25] LABS: Albumin, Blood 3.3 g/dL (3.4-5.0); Albumin/Globulin Ratio 1.1 (0.8-1.8); Bilirubin, Total 0.3 mg/dL (0.1-1.0); Bun/Creatinine Ratio 20.9 (12.0-20.0); Calcium, Blood 8.4 mg/dL (8.5-10.1); Creatinine, Blood 0.67 mg/dL (0.40-1.00); Globulin, Blood 3.1 g/dL (2.2-4.0); Potassium, Blood 3.5 mmol/L (3.5-5.5); Total Protein, Blood 6.4 g/dL (6.4-8.2)
--- NOTE | 2023-11-18 06:08 | NUR ---
SHIFT SUMMARY AOx4. VSS. HAS BEEN NPO SINCE MIDNIGHT FOR POSSIBLE PROCEDURE. SCANT BLOOD ON JUSTIN PAD PER PT, STATES SHE HASNT NEEDED TO CHANGE ALL SHIFT. REPORTS CONSTANT 8/10 CRAMPING PAIN LOW ABD RAIDIATING TO LOW BACK, STATES IT "LIKE A BAND". DENIES N/V. TOLERATED DIET PRIOR TO NPO. VOIDING. CALL LIGHT IN REACH, WILL MONITOR.
[2023-11-18] MEDS ORDERED: LORazepam 2 MG/ML 1ML Injection IV PRN (14:00)
--- NOTE | 2023-11-18 14:10 | NUR ---
INCREASED BLEEDING PT REPORTED INCREASED BLEEDING TO DR. CARROLL WHEN SHE ROUNDED. DR. CARROLL PRESENT TO EXAMINE PT. VSS, PT REMAINS ALERT AND ORIENTED. PAIN MANAGED.
--- NOTE | 2023-11-18 17:09 | NUR ---
SHIFT SUMMARY PT WAITING FOR DR. GRIFFIN TO ROUND. SHE HAS BEEN NPO T/O THE DAY. PAIN MANAGED WITH MORPHINE. ZOFRAN GIVEN FOR NAUSEA. ATIVAN FOR ANXIETY. PT HAS HAD SOME BLEEDING TODAY ALTHOUGH PT STATES BLEEDING IS LESS THAN PREVIOUS. PT USES CALL LIGHT APPROPRIATELY. FAMILY PRESENT FOR SUPPORT.
[2023-11-18] MEDS ORDERED: NS 100 ML IV ONE (18:50)
[2023-11-18] MEDS ORDERED: NS 1,000 ML IV ONE ×2 (19:02→19:24)
[2023-11-18] MEDS ORDERED: NS 250 ML IV ONE (19:02)
[2023-11-18] MEDS ORDERED: Heparin Sodium 1000 Units/ML 10ML MDV ONE ×2 (19:02→19:30)
[2023-11-18] MEDS ORDERED: Midazolam HCl 1MG / ML 2ML Vial ONE ×2 (19:24→19:47)
[2023-11-18] MEDS ORDERED: FentaNYL Citrate 50 MCG/ML 2 ML Injection ONE ×2 (19:24→19:59)
--- NOTE | 2023-11-18 19:24 | NUR ---
PT TAKEN TO [facility] FOR PROCEDURE. PY WILL GO BACK TO PCU 18 AFTER PROCEDURE. DAY SHIFT NURSE GAVE REPORT TO PCU NURSE. ALL BELONGINGS IN ROOM SENT WITH SPOUSE.
[2023-11-18] MEDS ORDERED: OxyCODONE HCL 5 MG TAB PO PRN ×2 (21:40)
--- NOTE | 2023-11-18 22:03 | NUR ---
TRANSFER NOTE/PATIENT UPDATE PT TRANSFERRED TO PCU 18 AT 2054. PT A&O X4. ABLE TO MAKE NEEDS KNOWN. BEDSIDE REPORT TAKEN FROM SENIOR STORAGE ADMINISTRATOR NURSES. VSS. ABDOMINAL/HIP/RT LEG PAIN NOTED. RT FEMORAL ARTERIAL/VENOUS ACCESS. DRESSING C/D/I. SOFT/NONTENDER, NO BLEEDING, DISCOLORATION, OR HEMATOMA PRESENT. DISTAL PULSES STRONG. PUREWICK IN PLACE FOR BEDREST STATUS. HEATING PAD GIVEN. NO BLEEDING NOTED IN ATTENDS. MEDICATED PER EMAR. MD CARROLL NOTIFIED OF PATIENT ARRIVAL TO PCU. DIET ORDERS PLACED. FAMILY AT BEDSIDE. BED IN LOWEST POSITION AND CALL LIGHT WITHIN REACH.
[2023-11-19] MEDS ORDERED: Ketorolac Tromethamine 15mg Vial IV SCH
[2023-11-19 04:17] VITALS: BP 111/78
--- NOTE | 2023-11-19 04:42 | NUR ---
SHIFT SUMMARY SEE PREVIOUS NOTE. PT NEURO INTACT. CALL PLACED TO MD CAICEDO REGARDING PATIENT'S PAIN/ANXIETY. MEDICATED PER EMAR FOR PAIN/ANXIETY/NAUSEA DURING THIS SHIFT. PT EDUCATED ON PAIN MANAGEMENT AND GOALS. RT FEMORAL ACCESS SITE UNCHANGED. SOFT/NONTENDER, NO BLEEDING, OOZING, OR DISCOLORATION NOTED. DISTAL PULSES STRONG. PT FULLY RECOVERED AND ABLE TO AMBULATE TO BEDSIDE COMMODE. SMALL AMOUNT OF BLEEDING NOTED WITH WIPING. LR INFUSING PER EMAR. HEATING PAD ON ABDOMEN FOR CONTINUED ABDOMINAL PAIN. PT ALSO COMPLAINING OF BACK AND RT GROIN PAIN. MEDICATED PER EMAR. BED IN LOWEST POSITION AND CALL LIGHT WITHIN REACH. THIS RN WILL REPORT TO ONCOMING DAYSHIFT RN.
[2023-11-19 07:15] VITALS: BP 111/75
[2023-11-19] MEDS ORDERED: Lactated Ringer's 500 ML IV ONE (09:20)
[2023-11-19] MEDS ORDERED: Prochlorperazine Edisylate 10 mg Vial IV PRN (09:20)
--- NOTE | 2023-11-19 09:42 | NUR ---
am note this rn assumed care at 0700. vital signs stable. tele sinus rhythm. patient is alert and oriented x4. neuro is intact. perrla. able to make needs known. denies pain, chest pain/pressure or shortness of breath at this time. see shift assessment for further detials. patient main complaint this morning is nausea and vomitting. discussed this md pickering. new medications order per emar and fluid bolus order. switched to medical no tele. plan of care is up to date
[2023-11-19] MEDS ORDERED: HYDROmorphone HCl/Pf 1MG SYR IV PRN (12:45)
[2023-11-19 13:53] LABS: BASOPHILS ABSOLUTE AUTO 0.01 K/mm3 (0.00-0.23); BASOPHILS PERCENT AUTO 0 % (0-2); EOSINOPHILS PERCENT AUTO 2 % (0-6); Hematocrit 28.5 % (33.0-51.0); Hemoglobin 9.2 g/dL (11.5-16.0); IMMATURE GRAN ABSOLUTE AUTO 0.01 K/mm3 (0.00-0.10); IMMATURE GRAN PERCENT AUTO 0 % (0-1); LYMPHOCYTES ABSOLUTE AUTO 1.44 K/mm3 (0.84-5.20); LYMPHOCYTES PERCENT AUTO 22 % (21-46); MONOCYTES ABSOLUTE AUTO 0.26 K/mm3 (0.16-1.47); MONOCYTES PERCENT AUTO 4 % (4-13); Mean Corpuscular HGB 25.5 pg (26.0-34.0); Mean Corpuscular HGB Conc 32.3 g/dL (31.5-36.5); Mean Corpuscular Volume 79 fL (80-100); Mean Platelet Volume 9.4 fL (9.1-12.4); NEUTROPHILS ABSOLUTE AUTO 4.81 K/mm3 (1.96-9.15); NEUTROPHILS PERCENT AUTO 73 % (41-73); Platelet Count 232 K/mm3 (150-400); RDW Standard Deviation 40.1 fL (35.1-46.3); Red Blood Cell Count 3.61 M/mm3 (3.80-5.20); White Blood Cell Count 6.63 K/mm3 (4.00-11.30)
--- NOTE | 2023-11-19 14:16 | NUR ---
update this rn into see patient due to complaints of right femoral site. site is tender and between the size of a golf ball and baseball. this rn informed extension service specialist in charge. extension service specialist in charge into room and held mannual pressure for 10 mins. this rn called md chirinos and was unable to get ahold and left message. this rn called md pickering and new orders placed, ct abd/pelvis and change in pain medications, see orders. this rn held mannual pressure for 5 mins. patient to imaging with sand bags in place. md pickering called this rn to update on imaging results. patient switched back to pcu status at this time for closer monitoring.
--- NOTE | 2023-11-19 15:33 | NUR ---
pt stated her stomach is still buldging when she sits up. she stated that she over heard doctor state to nurses post surgery "i dont like how that looks, take pictures and we'll send it up to [facility]" however she never recieved any information directly from doctor. she stated she felt nobody was commmunicating effectively.
[2023-11-19] MEDS ORDERED: Promethazine HCl 12.5 MG Supp PR PRN (15:45)
[2023-11-19] MEDS ORDERED: Scopolamine Hydrobromide Patch TOP SCH (16:00)
[2023-11-19 16:45] VITALS: BP 109/73
--- NOTE | 2023-11-19 17:31 | NUR ---
shift summary patient has hospitalist consult in place and marleen in to see patient. patient vital signs remain stable. patient right femoral site is preparing box tender and swelling gone down to a golf ball size. pedis dorsal pulses strong and equal sensation in both extremities. no acute changes.
[2023-11-19 17:34] LABS: Hematocrit 31.2 % (33.0-51.0)
[2023-11-19 18:13] LABS: Percent Saturation 22.8 % (15.0-50.0)
[2023-11-19 19:16] LABS: Hematocrit 28.6 % (33.0-51.0); Hemoglobin 9.3 g/dL (11.5-16.0); Mean Corpuscular HGB 25.6 pg (26.0-34.0); Mean Corpuscular HGB Conc 32.5 g/dL (31.5-36.5); Mean Corpuscular Volume 79 fL (80-100); Mean Platelet Volume 9.3 fL (9.1-12.4); Platelet Count 217 K/mm3 (150-400); RDW Coefficient Variation 14.2 % (11.7-14.2); RDW Standard Deviation 41.2 fL (35.1-46.3); Red Blood Cell Count 3.63 M/mm3 (3.80-5.20); White Blood Cell Count 8.14 K/mm3 (4.00-11.30)
[2023-11-19 20:35] VITALS: BP 117/68
[2023-11-20 00:09] VITALS: BP 107/65
[2023-11-20 04:08] VITALS: BP 103/67
[2023-11-20 04:37] LABS: BASOPHILS ABSOLUTE AUTO 0.01 K/mm3 (0.00-0.23); BASOPHILS PERCENT AUTO 0 % (0-2); EOSINOPHILS ABSOLUTE AUTO 0.25 K/mm3 (0.00-0.68); EOSINOPHILS PERCENT AUTO 5 % (0-6); Hematocrit 27.1 % (33.0-51.0); Hemoglobin 8.6 g/dL (11.5-16.0); IMMATURE GRAN ABSOLUTE AUTO 0.01 K/mm3 (0.00-0.10); IMMATURE GRAN PERCENT AUTO 0 % (0-1); LYMPHOCYTES ABSOLUTE AUTO 1.72 K/mm3 (0.84-5.20); LYMPHOCYTES PERCENT AUTO 34 % (21-46); MONOCYTES ABSOLUTE AUTO 0.37 K/mm3 (0.16-1.47); MONOCYTES PERCENT AUTO 7 % (4-13); Mean Corpuscular HGB 25.3 pg (26.0-34.0); Mean Corpuscular HGB Conc 31.7 g/dL (31.5-36.5); Mean Corpuscular Volume 80 fL (80-100); Mean Platelet Volume 9.6 fL (9.1-12.4); NEUTROPHILS ABSOLUTE AUTO 2.74 K/mm3 (1.96-9.15); NEUTROPHILS PERCENT AUTO 54 % (41-73); Platelet Count 207 K/mm3 (150-400); RDW Coefficient Variation 14.3 % (11.7-14.2); RDW Standard Deviation 41.6 fL (35.1-46.3)
--- NOTE | 2023-11-20 04:44 | NUR ---
SHIFT SUMMARY THIS RN ASSUMED CARE OF PATIENT AT 1900. BEDSIDE SHIFT REPORT WITH DENEEN RN TO ASSESS RT GROIN SITE. NO CHANGES TO GROIN SITE DURING THIS SHIFT. REMAINS TENDER, BUT IS SOFT TO TOUCH. NO DISCOLORATION. DISTAL PULSES STRONG. BLE WARM TO TOUCH. PAINFUL WITH MOVEMENT. PAIN APPEARS WELL CONTROLLED COMPARED TO THE PREVIOUS NOC SHIFT WITH THIS RN. PT ONLY MEDICATED X1 WITH PAIN MEDS. LIGHT BLEEDING ON PAD X1 DURING THIS SHIFT WHILE USING COMMODE. MEDICATED PER EMAR FOR NAUSEA X1. PT REPORTED BEING ABLE TO SLEEP WELL DURING THIS SHIFT. LR INFUSING PER EMAR. BED IN LOWEST POSITION AND CALL LIGHT WITHIN REACH. THIS RN WILL REPORT TO ONCOMING DAYSHIFT RN.
[2023-11-20 04:57] LABS: Bun/Creatinine Ratio 8.6 (12.0-20.0); Calcium, Blood 8.2 mg/dL (8.5-10.1); Creatinine, Blood 0.58 mg/dL (0.40-1.00); Potassium, Blood 3.9 mmol/L (3.5-5.5)
[2023-11-20 08:00] VITALS: BP 103/56
--- NOTE | 2023-11-20 09:01 | NUR ---
am note this rn assumed care at 0700. vital signs stable. tele sinus rhythm 80s. spo2 >95% on room air. patient is alert and oriented x4. neuro is intact. perrla. patient is able to make needs known and perform adls independently with assistance of managing lines. patient report pelivic pain and medicated per emar. patient denies chest pain/pressure or shortness of breath. see shift assessment for further detials. patient in the bathroom going pee and calls this rn to inform her of bleeding. patient had blood and very small, about 1cm round, the toilet is red coloration in the liquid in the toilet. will inform mds on rounding this morning.
--- NOTE | 2023-11-20 11:18 | NUR ---
update this rn called md cortez after patient was requesting to have doctor cortez with md hawley. this rn spoke with md cortez and she will be in to see the patient but will be unavailable after today, and will discuss this with the patient.
[2023-11-20 12:02] VITALS: BP 124/77
[2023-11-20 12:14] LABS: Hematocrit 30.9 % (33.0-51.0); Hemoglobin 9.9 g/dL (11.5-16.0)
--- NOTE | 2023-11-20 12:49 | NUR ---
UPDATE md Mckeon in to see patient and discussed plan of care. md Mckeon assess right femoral site, that is tender and has bruising present. plan to continue to monitor and await input from physicians md Mckeon has sent pictures of the blush to determine if needing to coil it. patient and family aware and in room and asking about switching to another hospital. md Mckeon discussed this with them and said pending the feedback can rediscuss the need for higher hospital care. patient and family agrees to this plan
[2023-11-20] MEDS ORDERED: OxyCODONE HCL 5 MG TAB PO PRN (13:15)
[2023-11-20] MEDS ORDERED: Magnesium Hydroxide Conc 10 ML UDC PO PRN (13:15)
[2023-11-20] MEDS ORDERED: Polyethylene Glycol 3350 17 gm PO SCH (13:21)
[2023-11-20 15:29] VITALS: BP 121/70
[2023-11-20] MEDS ORDERED: Gabapentin 100 MG Cap PO SCH (16:00)
[2023-11-20 18:22] LABS: Hematocrit 28.7 % (33.0-51.0); Hemoglobin 9.2 g/dL (11.5-16.0)
--- NOTE | 2023-11-20 18:30 | NUR ---
shift summary md cortez called this rn to updated on a phone call her and md chirinos had. md chirinos colleage recommened to emolize the uterin artery and then to place a foam. will attempt to transfer to [facility] to have this done. if patient beings to bleed heavily and more frequently can call md chirinos and willing to do this emergently. md cortez will continue to work with transfer tomorrow. patient updated. vital signs remain stable. tele sinus rhythm. neuro remains intact. right femoral site has increase in bruising into right labie, abdomen and thigh. reports numbness and tingling still in that thigh. md kovacs aware. no acute changes at this time. plan remains up to date
[2023-11-20 20:56] VITALS: BP 104/66
[2023-11-21 00:23] VITALS: BP 123/75
[2023-11-21 03:32] VITALS: BP 107/76
[2023-11-21 04:21] LABS: BASOPHILS ABSOLUTE AUTO 0.02 K/mm3 (0.00-0.23); BASOPHILS PERCENT AUTO 0 % (0-2); EOSINOPHILS ABSOLUTE AUTO 0.29 K/mm3 (0.00-0.68); EOSINOPHILS PERCENT AUTO 6 % (0-6); Hematocrit 29.3 % (33.0-51.0); Hemoglobin 9.3 g/dL (11.5-16.0); IMMATURE GRAN ABSOLUTE AUTO 0.01 K/mm3 (0.00-0.10); IMMATURE GRAN PERCENT AUTO 0 % (0-1); LYMPHOCYTES ABSOLUTE AUTO 2.17 K/mm3 (0.84-5.20); LYMPHOCYTES PERCENT AUTO 44 % (21-46); MONOCYTES ABSOLUTE AUTO 0.35 K/mm3 (0.16-1.47); MONOCYTES PERCENT AUTO 7 % (4-13); Mean Corpuscular HGB 25.5 pg (26.0-34.0); Mean Corpuscular HGB Conc 31.7 g/dL (31.5-36.5); Mean Corpuscular Volume 81 fL (80-100); Mean Platelet Volume 9.8 fL (9.1-12.4); NEUTROPHILS ABSOLUTE AUTO 2.08 K/mm3 (1.96-9.15); NEUTROPHILS PERCENT AUTO 42 % (41-73); Platelet Count 230 K/mm3 (150-400); RDW Coefficient Variation 14.3 % (11.7-14.2); RDW Standard Deviation 42.2 fL (35.1-46.3); Red Blood Cell Count 3.64 M/mm3 (3.80-5.20); White Blood Cell Count 4.92 K/mm3 (4.00-11.30)
[2023-11-21 04:35] LABS: Bun/Creatinine Ratio 11.3 (12.0-20.0); Calcium, Blood 8.6 mg/dL (8.5-10.1); Creatinine, Blood 0.71 mg/dL (0.40-1.00); Potassium, Blood 3.5 mmol/L (3.5-5.5)
--- NOTE | 2023-11-21 06:22 | NUR ---
SHIFT SUMMARY PATIENT ALERT AND ORINETED X4. PATIET REPORTS FEELING WEAK AND GENERALLY UNWELL, USES CALL LIGHT APPROPRIATELY. GROIN SITE UNCHANGED, PATIENT CONTINUES TO HAVE A SMALL AMOUNT OF VAGINAL BLEEDING. MEDICATED PER EMAR FOR PAIN. ON ROOM AIR WITH SPO2 >90%, DENIES SHORTNESS OF BREATH. VITAL SIGNS STABLE, SINUS RHYTHM ON TELE. NO ACUTE ISSUES NOTED OVERNIGHT. WILL CONTINUE TO MONITOR. CALL LIGHT WITHIN REACH.
[2023-11-21 07:43] VITALS: BP 116/75
[2023-11-21] MEDS ORDERED: Iron Dextran 25 MG in NS 50 ML IV ONE (08:30)
[2023-11-21] MEDS ORDERED: NS 1,000 ML IV SCH (08:55)
[2023-11-21] MEDS ORDERED: Polyethylene Glycol 3350 17 gm PO SCH (09:00)
[2023-11-21 09:23] LABS: Source, Urine Clean Catch
[2023-11-21 09:38] LABS: Appearance, Urine Hazy (Clear); Bilirubin, Urine Neg (Neg); Blood, Urine 5+ (Neg); Color, Urine Red (P-Yellow); Glucose Qualitative, Urine Neg (Neg); Ketones, Urine 1+ (Neg); Leukocyte Esterase, Urine 3+ (Neg); Nitrite, Urine Pos (Neg); Protein, Urine 3+ (Neg); Urobilinogen, Urine NORM (Normal)
[2023-11-21 09:48] LABS: Bacteria Many /hpf; Red Blood Cells, Urine TNTC /hpf (0-2); Squamous Epithelial Cells Many /hpf (Few)
[2023-11-21] MEDS ORDERED: Iron Dextran 975 MG in NS 250 ML IV ONE (10:30)
[2023-11-21 11:11] VITALS: BP 103/63
--- NOTE | 2023-11-21 11:13 | NUR ---
am note this rn assumed care at 0700. vital sings stable. tele sinus rhythm 70-80s. patient is alert and oriented x4. neuro is intact. patient is able to make needs known. denies chest pain/pressure or shortness of breath. patient reports pain at right femoral site and medicated per emar. patient site is tender swollen and bruising at site, rigrht labia, and thigh. see shift assessment for further detials. iron transfusion this morning. md hawley in to see patient this am. awaiting md cortez to discuss plan of care and possible transfer to [facility].
[2023-11-21] MEDS ORDERED: CefTRIAXone Sodium 1,000 MG in NS 100 ML IV SCH (12:00)
[2023-11-21] MEDS ORDERED: MIRALAX17 GM PO (17:15)
[2023-11-21] MEDS ORDERED: LACT PO (17:16)
[2023-11-21] MEDS ORDERED: TRANSDERM-SCOP1 EA13 TD (17:16)
[2023-11-21] MEDS ORDERED: ONDA4 PO (17:17)
[2023-11-21] MEDS ORDERED: CEPH500 PO (17:17)
--- NOTE | 2023-11-21 17:43 | NUR ---
discharge this rn went over discharge education with the patient on new medications and to take all medications for required course. this rn went over follow up appointment with dr cortez for november 27 at 1330. this rn went over that md cortez office will be in contact with the patient by the end of friday to update on a outpatient spot at [facility] for IR. patient verbalized understanding. patient left with all of her belongings and in no distress.
[2023-11-21] MEDS ORDERED: Lactobacil 2-S.Thermo-Bifido 1 1 Cap PO SCH (21:00)
[2023-11-21] MEDS ORDERED: Nitrofurantoin/Nitrofuran Mac 100 MG Cap PO SCH (21:00)
== END 2023-11-21 17:36 | disposition home or self-care (01) | DRG 908 ==
LOC: ER 14:44 → SURS 14:45 → PCU 11-18 19:37
PROVIDERS: Family Medicine; Obstetrics & Gynecology; Physician Assistant; ADMIT Obstetrics & Gynecology
PROC: 06L Lower Veins, Occlusion (ICD-10-PCS; principal; 2023-11-18)
PROC: B5191ZZ Fluoroscopy of Inferior Vena Cava using Low Osmolar Contrast (ICD-10-PCS; 2023-11-18)
PROC: B51 Imaging, Veins, Fluoroscopy (ICD-10-PCS; 2023-11-18)
PROC: B51G1ZZ Fluoroscopy of Left Pelvic (Iliac) Veins using Low Osmolar Contrast (ICD-10-PCS; 2023-11-18)
PROC: B41C1ZZ Fluoroscopy of Pelvic Arteries using Low Osmolar Contrast (ICD-10-PCS; 2023-11-18)
DX: N99.820 Postprocedural hemorrhage of a genitourinary system organ or structure following a genitourinary system procedure (principal); D62 Acute posthemorrhagic anemia; L76.32 Postprocedural hematoma of skin and subcutaneous tissue following other procedure; N39.0 Urinary tract infection, site not specified; M32.9 Systemic lupus erythematosus, unspecified; I86.2 Pelvic varices; G90.A Postural orthostatic tachycardia syndrome [POTS]; Y83.8 Other surgical procedures as the cause of abnormal reaction of the patient, or of later complication, without mention of misadventure at the time of the procedure; Z90.710 Acquired absence of both cervix and uterus; Z90.79 Acquired absence of other genital organ(s); Z90.722 Acquired absence of ovaries, bilateral; Z87.891 Personal history of nicotine dependence
CPT/HCPCS: 36415; 74174; 74177; 76937; 80048; 80053; 81001; 82607; 82728; 82746; 83540; 83550; 83735; 85014; 85018; 85025; 85027; 85610; 85730; 86850; 86900; 86901; 87086; 94760; 96374; 96375; 96376; 99152; 99153; 99285-25; A9270; C1760; C1769; C1887; C1894; G0378; J0696; J0780; J1170; J1644; J1750; J1885; J2060; J2250; J2270; J2405; J2765; J3010; J7030; J7050; J7120; Q9967

== ENCOUNTER → 2023-11-26 | Outpatient (CLI) | payer OTHER ==
[~2023-11-26] MED LIST changes: +LACT PO; +MIRALAX17 GM PO; +ONDA4 PO; +TRANSDERM-SCOP1 EA13 TD
[2023-11-26 16:42] LABS: BASOPHILS ABSOLUTE AUTO 0.03 K/mm3 (0.00-0.23); BASOPHILS PERCENT AUTO 0 % (0-2); EOSINOPHILS ABSOLUTE AUTO 0.12 K/mm3 (0.00-0.68); EOSINOPHILS PERCENT AUTO 2 % (0-6); Hemoglobin 10.9 g/dL (11.5-16.0); IMMATURE GRAN ABSOLUTE AUTO 0.01 K/mm3 (0.00-0.10); IMMATURE GRAN PERCENT AUTO 0 % (0-1); LYMPHOCYTES ABSOLUTE AUTO 1.46 K/mm3 (0.84-5.20); LYMPHOCYTES PERCENT AUTO 21 % (21-46); MONOCYTES ABSOLUTE AUTO 0.45 K/mm3 (0.16-1.47); MONOCYTES PERCENT AUTO 7 % (4-13); Mean Corpuscular HGB 25.4 pg (26.0-34.0); Mean Corpuscular HGB Conc 31.1 g/dL (31.5-36.5); Mean Corpuscular Volume 82 fL (80-100); Mean Platelet Volume 9.2 fL (9.1-12.4); NEUTROPHILS PERCENT AUTO 70 % (41-73); Platelet Count 275 K/mm3 (150-400); RDW Coefficient Variation 14.9 % (11.7-14.2); RDW Standard Deviation 43.5 fL (35.1-46.3); Red Blood Cell Count 4.29 M/mm3 (3.80-5.20); White Blood Cell Count 6.97 K/mm3 (4.00-11.30)
[2023-11-26 16:56] LABS: Albumin, Blood 3.9 g/dL (3.4-5.0); Albumin/Globulin Ratio 0.9 (0.8-1.8); Bilirubin, Total 0.5 mg/dL (0.1-1.0); Bun/Creatinine Ratio 21.1 (12.0-20.0); Calcium, Blood 9.3 mg/dL (8.5-10.1); Creatinine, Blood 0.57 mg/dL (0.40-1.00); Globulin, Blood 4.4 g/dL (2.2-4.0); Potassium, Blood 3.6 mmol/L (3.5-5.5); Total Protein, Blood 8.3 g/dL (6.4-8.2)
== END | disposition home or self-care (01) ==
LOC: LAB 16:38 → LAB SHORT 16:38
PROVIDERS: Physician Assistant Medical
DX: R00.0 Tachycardia, unspecified (principal)
CPT/HCPCS: 80053; 85025

== ENCOUNTER 2024-04-25 16:52 | Emergency (ER) | payer OTHER ==
[~2024-04-25] VITALS: Ht 160 cm; Wt 47.6 kg
[2024-04-25] MEDS ORDERED: NS 1,000 ML IV SCH (17:25)
[2024-04-25] MEDS ORDERED: Metoclopramide HCl 5MG / ML 2ML Vial IV ONE (17:25)
[2024-04-25 19:18] LABS: Magnesium, Blood 1.7 mg/dL (1.6-2.4)
[2024-04-25 19:54] LABS: Source, Urine Clean Catch
[2024-04-25 20:02] LABS: Bilirubin, Urine Neg (Neg); Blood, Urine Neg (Neg); Glucose Qualitative, Urine Neg (Neg); Ketones, Urine 4+ (Neg); Leukocyte Esterase, Urine Neg (Neg); Nitrite, Urine Neg (Neg); Protein, Urine 2+ (Neg); Urobilinogen, Urine NORM (Normal)
[2024-04-25 20:12] LABS: Appearance, Urine Hazy (Clear); Color, Urine Yellow (P-Yellow)
[2024-04-25 20:13] LABS: Amorphous Light (0-Heavy); Bacteria Many /hpf; Mucus Heavy (0-Heavy); Red Blood Cells, Urine Not Seen /hpf (0-2); Squamous Epithelial Cells Many /hpf (Few)
[2024-04-25] MEDS ORDERED: Prochlorperazine Edisylate 10 mg Vial IV ONE (20:15)
[2024-04-25] MEDS ORDERED: Loperamide HCl 2 MG Cap PO ONE (20:15)
[2024-04-25 22:00] VITALS: BP 103/67
== END 2024-04-25 22:15 | disposition home or self-care (01) ==
LOC: ER 16:52
PROVIDERS: Emergency Medicine
DX: R11.2 Nausea with vomiting, unspecified (principal); R19.7 Diarrhea, unspecified; R55 Syncope and collapse; E86.0 Dehydration; Z79.899 Other long term (current) drug therapy
CPT/HCPCS: 81001; 83605; 83690; 83735; 87086; 96374; 96375; 99283-25; A9270; J0780; J2765; J7030

== ENCOUNTER → 2024-04-25 | Outpatient (CLI) | payer OTHER ==
[2024-04-25 16:33] LABS: BASOPHILS ABSOLUTE AUTO 0.05 K/mm3 (0.00-0.23); BASOPHILS PERCENT AUTO 0 % (0-2); EOSINOPHILS ABSOLUTE AUTO 0.13 K/mm3 (0.00-0.68); EOSINOPHILS PERCENT AUTO 1 % (0-6); Hematocrit 46.9 % (33.0-51.0); Hemoglobin 14.9 g/dL (11.5-16.0); IMMATURE GRAN ABSOLUTE AUTO 0.05 K/mm3 (0.00-0.10); IMMATURE GRAN PERCENT AUTO 0 % (0-1); LYMPHOCYTES ABSOLUTE AUTO 1.25 K/mm3 (0.84-5.20); LYMPHOCYTES PERCENT AUTO 8 % (21-46); MONOCYTES PERCENT AUTO 4 % (4-13); Mean Corpuscular HGB Conc 31.8 g/dL (31.5-36.5); Mean Corpuscular Volume 82 fL (80-100); Mean Platelet Volume 9.6 fL (9.1-12.4); NEUTROPHILS ABSOLUTE AUTO 14.34 K/mm3 (1.96-9.15); NEUTROPHILS PERCENT AUTO 87 % (41-73); Platelet Count 291 K/mm3 (150-400); RDW Coefficient Variation 13.2 % (11.7-14.2); RDW Standard Deviation 38.5 fL (35.1-46.3); Red Blood Cell Count 5.73 M/mm3 (3.80-5.20); White Blood Cell Count 16.42 K/mm3 (4.00-11.30)
[2024-04-25 16:43] LABS: Albumin, Blood 4.7 g/dL (3.4-5.0); Albumin/Globulin Ratio 1.1 (0.8-1.8); Bilirubin, Total 1.2 mg/dL (0.1-1.0); Bun/Creatinine Ratio 19.3 (12.0-20.0); Calcium, Blood 9.9 mg/dL (8.5-10.1); Creatinine, Blood 0.83 mg/dL (0.40-1.00); Globulin, Blood 4.2 g/dL (2.2-4.0); Magnesium, Blood 1.8 mg/dL (1.6-2.4); Phosphorus, Blood 2.4 mg/dL (2.5-4.9); Potassium, Blood 3.4 mmol/L (3.5-5.5); Total Protein, Blood 8.9 g/dL (6.4-8.2)
== END | disposition home or self-care (01) ==
LOC: LAB SHORT 16:28 → LAB 16:28
PROVIDERS: Family Medicine
DX: R41.82 Altered mental status, unspecified (principal)
CPT/HCPCS: 80053; 83735; 84100; 85025

== ENCOUNTER → 2024-12-29 | Outpatient (CLI) | payer OTHER ==
[2024-12-29 17:33] LABS: BASOPHILS ABSOLUTE AUTO 0.02 K/mm3 (0.00-0.23); BASOPHILS PERCENT AUTO 0 % (0-2); EOSINOPHILS ABSOLUTE AUTO 0.12 K/mm3 (0.00-0.68); EOSINOPHILS PERCENT AUTO 2 % (0-6); Hematocrit 38.1 % (33.0-51.0); Hemoglobin 12.5 g/dL (11.5-16.0); IMMATURE GRAN ABSOLUTE AUTO 0.02 K/mm3 (0.00-0.10); IMMATURE GRAN PERCENT AUTO 0 % (0-1); LYMPHOCYTES ABSOLUTE AUTO 2.34 K/mm3 (0.84-5.20); LYMPHOCYTES PERCENT AUTO 33 % (21-46); MONOCYTES ABSOLUTE AUTO 0.39 K/mm3 (0.16-1.47); MONOCYTES PERCENT AUTO 5 % (4-13); Mean Corpuscular HGB Conc 32.8 g/dL (31.5-36.5); Mean Corpuscular Volume 83 fL (80-100); NEUTROPHILS ABSOLUTE AUTO 4.28 K/mm3 (1.96-9.15); NEUTROPHILS PERCENT AUTO 60 % (41-73); NRBC ABSOLUTE 0.00 K/mm3 (0.00-0.02); NRBC Auto 0.0 /100 WBC (0.0-0.2); Platelet Count 266 K/mm3 (150-400); RDW Coefficient Variation 13.4 % (11.7-14.2); RDW Standard Deviation 40.4 fL (35.1-46.3)
[2024-12-29 17:53] LABS: Alanine Aminotransfer (ALT/SGP 31.0 U/L (12-78); Albumin, Blood 4.3 g/dL (3.4-5.0); Albumin/Globulin Ratio 1.2 (0.8-1.8); Anion Gap 10.0 mmol/L (3-11); Aspartate Aminotrans (AST/SGOT 22.0 U/L (12-37); Bilirubin, Total 0.5 mg/dL (0.1-1.0); Blood Urea Nitrogen 13.0 mg/dL (8-24); CO2, Blood 29.0 mmol/L (21-32); Calcium, Blood 9.5 mg/dL (8.5-10.1); Chloride, Blood 104.0 mmol/L (98-108); Creatinine, Blood 0.61 mg/dL (0.40-1.00); Globulin, Blood 3.7 g/dL (2.2-4.0); Glucose, Blood 91.0 mg/dL (70-99); Magnesium, Blood 2.0 mg/dL (1.6-2.4); Potassium, Blood 3.4 mmol/L (3.5-5.5); Sodium, Blood 140.0 mmol/L (136-145); Thyroid Stimulating Hormone 2.518 uIU/mL (0.360-4.800); Total Protein, Blood 8.0 g/dL (6.4-8.2)
== END | disposition home or self-care (01) ==
LOC: LAB SHORT 17:28 → LAB 17:28
PROVIDERS: Physician Assistant
DX: R53.83 Other fatigue (principal)
CPT/HCPCS: 80053; 83735; 84443; 85025

== ENCOUNTER → 2025-02-06 | Outpatient (CLI) | payer OTHER ==
[2025-02-06 11:04] LABS: BASOPHILS ABSOLUTE AUTO 0.02 K/mm3 (0.00-0.23); BASOPHILS PERCENT AUTO 0 % (0-2); EOSINOPHILS ABSOLUTE AUTO 0.11 K/mm3 (0.00-0.68); EOSINOPHILS PERCENT AUTO 2 % (0-6); Hematocrit 40.3 % (33.0-51.0); Hemoglobin 12.8 g/dL (11.5-16.0); IMMATURE GRAN ABSOLUTE AUTO 0.01 K/mm3 (0.00-0.10); IMMATURE GRAN PERCENT AUTO 0 % (0-1); LYMPHOCYTES ABSOLUTE AUTO 1.84 K/mm3 (0.84-5.20); LYMPHOCYTES PERCENT AUTO 28 % (21-46); MONOCYTES ABSOLUTE AUTO 0.31 K/mm3 (0.16-1.47); MONOCYTES PERCENT AUTO 5 % (4-13); Mean Corpuscular HGB Conc 31.8 g/dL (31.5-36.5); Mean Corpuscular Volume 83 fL (80-100); NEUTROPHILS ABSOLUTE AUTO 4.37 K/mm3 (1.96-9.15); NEUTROPHILS PERCENT AUTO 66 % (41-73); NRBC ABSOLUTE 0.00 K/mm3 (0.00-0.02); NRBC Auto 0.0 /100 WBC (0.0-0.2); Platelet Count 233 K/mm3 (150-400); RDW Coefficient Variation 13.2 % (11.7-14.2); RDW Standard Deviation 39.8 fL (35.1-46.3)
[2025-02-06 11:11] LABS: Anion Gap 12.0 mmol/L (3-11); Blood Urea Nitrogen 11.0 mg/dL (8-24); CO2, Blood 30.0 mmol/L (21-32); Calcium, Blood 9.1 mg/dL (8.5-10.1); Chloride, Blood 105.0 mmol/L (98-108); Creatinine, Blood 0.68 mg/dL (0.40-1.00); Glucose, Blood 80.0 mg/dL (70-99); Potassium, Blood 3.9 mmol/L (3.5-5.5); Sodium, Blood 143.0 mmol/L (136-145)
== END ==
LOC: LAB SHORT 11:00 → LAB 11:00
PROVIDERS: Family Medicine
DX: E86.0 Dehydration (principal)
CPT/HCPCS: 80048; 85025